=== PATIENT | female | born 1935 | race Caucasian/White ===

== ENCOUNTER 2017-03-09 10:21 | Outpatient (CLI) | payer MEDICARE ==
--- NOTE | 2017-03-09 11:31 | RAD ---
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 Followup for post surgery. COMPARISON: None. FINDINGS: In the neutral position there is anterolisthesis of L4 over L5 approximately 5 mm. Moderate degenera tive disk space narrowing at L3-4, L4-5, and L5-S1. Multiple anterior osteophytes throughout the lum bar spine. Laminectomy changes at L3, L4, and L5. With flexion, there is no further translation of the L4-5 anterolisthesis. On extension, there is no significant decrease in the listhesis. IMPRESSION: 1. No significant translation of the L4-5 grade I 5 mm anterolisthesis. 2. Multilevel degenerative disease. 3. Laminectomy changes. POS: [facility]
== END 2017-03-09 10:22 | disposition home or self-care (01) ==
LOC: TBSIIMAG 10:21
PROVIDERS: ATTEND Neurological Surgery
DX: M48.061 Spinal stenosis, lumbar region without neurogenic claudication (principal); M47.896 Other spondylosis, lumbar region; Z98.890 Other specified postprocedural states
CPT/HCPCS: 72100

== ENCOUNTER 2017-03-10 13:18 | Outpatient (CLI) | payer MEDICARE ==
[~2017-03-10 13:18] MED LIST: Gadobenate Dimeglumine 529 MG/1 ML (20ML VIAL) ONE
--- NOTE | 2017-03-10 15:25 | MRI ---
MRI OF LUMBAR SPINE WITH AND WITHOUT CONTRAST: DATE: 03/10/17. COMPARISON: None. HISTORY: Back surgery October 15, 2016. Persistent back pain. TECHNIQUE: Multiplanar, multisequence MR imaging of the lumbar spine is obtained with and without contrast. FINDINGS: The sagittal STIR imaging demonstrates no focal area of osseous marrow edema. Assuming 5 lumbar-type vertebral bodies, conus medullaris terminates at the L1-2 level. There is mild anterolisthesis of L4 on L5 measuring in the 4 mm range. T12-L1: There is disk space narrowing, disk desiccation, and anterior osteophyte formation. There i s mild bilateral facet hypertrophy. No significant central canal or neural foraminal stenosis. L1-2: Mild bilateral facet hypertrophy. Intervertebral disk height appears within normal limits wit h no significant central canal or neural foraminal stenosis seen. L2-3: Mild bilateral facet hypertrophy and hypertrophy of the ligamentum flavum. There is disk spac e narrowing, disk desiccation, and mild disk bulge. No significant central canal stenosis. There is anterior osteophyte formation. No significant neural foraminal stenosis. L3-4: There is disk space narrowing, disk desiccation, and disk bulge. There is mild bilateral face t hypertrophy. Bilateral laminectomy changes are present. There is no significant central canal rona nosis. There is mild bilateral neural foraminal stenosis. L4-5: Bilateral laminectomy changes are noted. There is mild bilateral facet hypertrophy. There is a small foraminal protrusion on the left. There is no significant central canal or neural foraminal stenosis. L5-S1: Mild bilateral facet hypertrophy noted. No significant central canal or neural foraminal rona nosis. The STIR imaging demonstrates increased signal intensity within the posterior midline paraspinal musc ulature at L3, L4, and L5, with diffuse associated postcontrast enhancement, most likely on the basis of postoperative scar. The postcontrast imaging demonstrates no abnormal enhancement involving the nerve roots of the cauda equina, the intervertebral disks, or the imaged osseous structures. The yvan ged retroperitoneal structures demonstrate no acute findings. There is a tiny T2 hyperintense lesion within the left hemipelvis, likely ovarian in nature, measuring up to 1.2 cm, suggesting a cyst. Re commend followup pelvic ultrasound given patient's age. IMPRESSION: 1. Postoperative and degenerative changes noted within the lumbar spine as detailed above. 2. Small T2 hyperintense lesion within the left hemipelvis, for which a followup pelvis ultrasound i s advised. CODE T POS: [facility]
== END 2017-03-10 13:19 | disposition home or self-care (01) ==
LOC: SCSMRI 13:18
PROVIDERS: ATTEND Neurological Surgery
DX: M48.061 Spinal stenosis, lumbar region without neurogenic claudication (principal); M43.16 Spondylolisthesis, lumbar region; M47.816 Spondylosis without myelopathy or radiculopathy, lumbar region; Z98.890 Other specified postprocedural states
CPT/HCPCS: 72158; A9579

== ENCOUNTER 2017-04-29 15:21 | Outpatient (CLI) | payer MEDICARE ==
--- NOTE | 2017-04-29 16:29 | RAD ---
LUMBAR SPINE TWO VIEWS: 04/29/17 COMPARISON: 03/09/17 HISTORY: Surgery in October, low back pain. FINDINGS: There are postsurgical clips in the mid right abdomen. Pedicles appear intact on frontal imaging with in the lumbar spine. Bilateral laminectomy changes are noted at L3-4, L4-5 and L5-S1. There is facet hypertrophy at L3-4 and L4-5. There is retrolisthesis of L3 on L4 measuring 6 mm, as seen on extension imaging performed 03/09/17. There is anterolisthesis of L4 on L5 measuring in the 7 mm range, also stable when compared to 8. There is anterolisthesis of L5 on S1 measuring approximately 5 mm, stable as well when compared to prior imaging. There is disc space narrowing and anterior osteophyte formation at T12-L1, L1-2 and L2-3. No acute os seous abnormality noted. IMPRESSION: Multilevel postoperative and degenerative changes as detailed above. POS: [facility]
== END 2017-04-29 15:22 | disposition home or self-care (01) ==
LOC: TBSIIMAG 15:21
PROVIDERS: ATTEND Neurological Surgery
DX: M43.16 Spondylolisthesis, lumbar region (principal); M47.896 Other spondylosis, lumbar region; Z98.890 Other specified postprocedural states
CPT/HCPCS: 72100

== ENCOUNTER 2017-05-30 15:25 | Emergency (ER) | payer MEDICARE ==
[~2017-05-30 15:25] MED LIST changes: -Gadobenate Dimeglumine 529 MG/1 ML (20ML VIAL) ONE; +ISOVUE-370 76%-LOCM 1 ML ONE
[2017-05-30 15:57] LABS: #Basophils 0.1 thou/uL (0.0-0.2); #Lymphocytes 1.6 thou/uL (1.20-3.40); #Monocytes 0.7 thou/uL (0.11-0.59); #Neutrophils 4.5 thou/uL (1.40-6.50); %Basophils 0.7 % (0.0-1.0); %Eosinophils 0.6 % (0.0-10.0); %Lymphocytes 23.2 % (21.0-51.0); %Monocytes 10.4 % (0.0-10.0); %Neutrophils 65.1 % (42.0-75.0); Hemoglobin 16.1 g/dL (12.0-16.0); Mean Corpuscular HGB CONC 34.3 g/dL (32.0-36.0); Mean Corpuscular Hemoglobin 30.6 pg (27.0-31.0); Mean Corpuscular Volume 89.1 fl (81.0-99.0); Mean Platelet Volume 6.8 fL (7.4-10.4); Platelet Count 221 thou/uL (130-400); RBC Distribution Width 12.1 % (11.5-14.5); Red Blood Cell (RBC) Count 5.27 mill/uL (4.20-5.40)
[2017-05-30 16:21] LABS: ALT (SGPT) 20 U/L (8-55); AST (SGOT) 19 U/L (5-34); Albumin 4.1 g/dL (3.4-4.8); Alkaline Phosphatase 202 U/L (40-150); Anion Gap 17 mmol/L (10-20); BUN (Urea Nitrogen) 17 mg/dL (9.8-20.1); Bilirubin, Total 0.8 mg/dL (0.2-1.2); Calc. Creatinine Clearance 0 mL/min (70-130); Calcium 9.7 mg/dL (7.8-10.44); Carbon Dioxide 26 mmol/L (23-31); Chloride 103 mmol/L (98-107); Estimated GFR-MDRD 70; Globulin 3.7 g/dL (2.4-3.5); Glucose 138 mg/dL (83-110); Lipase 11 U/L (8-78); Potassium 3.5 mmol/L (3.5-5.1); Protein, Total 7.8 g/dL (6.0-8.3); Sodium 142 mmol/L (136-145)
--- NOTE | 2017-05-30 17:27 | CT ---
CT ABDOMEN AND PELVIS: 05/30/2017 HISTORY: Right upper quadrant abdominal pain with intermittent diarrhea. Nausea and vomiting. COMPARISON: None available.. FINDINGS: There is dependent bibasilar atelectasis. There is a 3.1 cm, low density cystic lesion within the posterior segment of the right hepatic lobe, which does demonstrate fluid attenuation and likely represents a hepatic cyst. Post cholecystectomy changes are noted. The spleen, pancreas, bilateral adrenal glands, kidneys, and incompletely distended urinary bladder d emonstrate a normal CT appearance. There is a right total hip prosthesis, which does result in artifact through the pelvis, limiting gill luation, but the uterus has a grossly normal appearance where seen. The adnexal structures are also within normal limits for the patient's age. Minimal vascular calcifications are seen in the abdominal aorta with mild atherosclerotic plaque. There are ventral, fat-containing, infraumbilical abdominal wall hernias noted. Degenerative changes, as well as post surgical changes of the lumbar spine, are noted. There is a co mpression fracture involving the superior endplate of the L3 vertebral body. This fracture was not p resent on plain film evaluation of the lumbar spine on 04/29/2017, suggesting a more recent fracture. There does appear to be retrolisthesis of L3 on L4 on the [employer] image. Anterolisthesis of L4 on L5 and L5 on S1 was also noted on the prior exam, which is not well delineated on today's [employer] image. IMPRESSION: 1. Compression fracture L3 vertebral body. While the exact age is unable to be determined based on this exam, this does represent an interval change compared to a study on 04/29/2017. 2. Multilevel degenerative changes, as well as postsurgical changes of the lumbar spine. 3. Fat-containing infraumbilical ventral abdominal wall hernias. 4. Cholecystectomy. 5. Right hepatic lobe cyst. POS: [facility]
[2017-05-30] MEDS ORDERED: Ketorolac Tromethamine 30 MG/ML VIAL ONE ×2 (19:37→19:38)
== END 2017-05-30 19:59 | disposition home or self-care (01) ==
LOC: ERS 15:25
DX: R19.7 Diarrhea, unspecified (principal); R11.0 Nausea; S32.039D Unspecified fracture of third lumbar vertebra, subsequent encounter for fracture with routine healing; X58.XXXD Exposure to other specified factors, subsequent encounter; E11.9 Type 2 diabetes mellitus without complications; E03.9 Hypothyroidism, unspecified; I10 Essential (primary) hypertension; Z79.84 Long term (current) use of oral hypoglycemic drugs; Z79.899 Other long term (current) drug therapy
CPT/HCPCS: 74177; 80053; 83605; 83690; 85025; 96360; 96361; 96372; J1885

== ENCOUNTER 2017-06-07 14:05 | Outpatient (CLI) | payer MEDICARE ==
--- NOTE | 2017-06-07 14:47 | RAD ---
2 VIEWS LUMBAR SPINE: Date: 06/07/17 INDICATION: Follow-up fracture. COMPARISON: Prior exam dated 04/29/[address] of the abdomen and pelvis dated 05/30/17. FINDINGS: The moderate wedge compression abnormality of L3 is stable. The mild retrolisthesis of L3 on L4 and m ild anterolisthesis of L4 on L5 is stable. Mild Grade I anterolisthesis of L5 on S1 is stable. SI [place]ia [place] nts appear within normal limits. Postsurgical change consistent with laminectomies at L4 and L5 are s table. There is partial visualization of right total hip prosthesis. IMPRESSION: 1. Stable moderate wedge compression abnormality of L3. 2. 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 POS: [facility]
== END 2017-06-07 14:06 | disposition home or self-care (01) ==
LOC: TBSIIMAG 14:05
PROVIDERS: ATTEND Neurological Surgery
DX: M48.56XA Collapsed vertebra, not elsewhere classified, lumbar region, initial encounter for fracture (principal); M47.896 Other spondylosis, lumbar region
CPT/HCPCS: 72100

== ENCOUNTER 2017-06-08 19:06 | Emergency (ER) | payer MEDICARE ==
--- NOTE | 2017-06-08 20:53 | RAD ---
FRONTAL RADIOGRAPH CHEST TWO VIEWS OF ABDOMEN: 06/08/17 COMPARISON: None. HISTORY: Constipation and abdominal pain. FINDINGS: Frontal radiograph chest demonstrates no pneumothorax, pleural fluid, focal consolidation, or alveola r edema. Heart and mediastinal contours are unremarkable. The upright imaging demonstrates no evidence for free intraperitoneal air. Clips in the right upper q uadrant suggests prior cholecystectomy. Significant stool overlies the region of the rectum within th e pelvis. The bowel gas pattern appears nonobstructed. There is a total hip arthroplasty on the right . IMPRESSION: No evidence for free intraperitoneal air, small bowel obstruction or acute cardiopulmonary disease. POS: [facility]
[2017-06-08 21:30] LABS: #Lymphocytes 0.9 thou/uL (1.20-3.40); #Monocytes 0.8 thou/uL (0.11-0.59); %Basophils 0.5 % (0.0-1.0); %Eosinophils 0.2 % (0.0-10.0); %Lymphocytes 8.8 % (21.0-51.0); %Monocytes 8.7 % (0.0-10.0); %Neutrophils 81.9 % (42.0-75.0); Hemoglobin 13.9 g/dL (12.0-16.0); Mean Corpuscular HGB CONC 33.6 g/dL (32.0-36.0); Mean Corpuscular Hemoglobin 29.9 pg (27.0-31.0); Mean Platelet Volume 6.9 fL (7.4-10.4); Platelet Count 213 thou/uL (130-400); RBC Distribution Width 12.2 % (11.5-14.5); Red Blood Cell (RBC) Count 4.65 mill/uL (4.20-5.40); White Blood Cell (WBC) Count 9.7 thou/uL (4.8-10.8)
[2017-06-08 21:51] LABS: Bilirubin Negative (Negative); Blood, Urine Negative (Negative); Clarity CLOUDY (Clear); Glucose, Urine (Dipstick) Negative (Negative); Leukocyte Small (Negative); Nitrite Negative (Negative); Protein, Urine (Dipstick) Negative (Neg-Trace); Specific Gravity, Urine 1.025 (1.002-1.036); pH, Urine 5.5 (5.0-9.0)
[2017-06-08 21:52] LABS: ALT (SGPT) 16 U/L (8-55); AST (SGOT) 16 U/L (5-34); Albumin 3.6 g/dL (3.4-4.8); Alkaline Phosphatase 161 U/L (40-150); Anion Gap 14 mmol/L (10-20); BUN (Urea Nitrogen) 14 mg/dL (9.8-20.1); Bilirubin, Total 0.6 mg/dL (0.2-1.2); Calc. Creatinine Clearance 0 mL/min (70-130); Calcium 8.8 mg/dL (7.8-10.44); Carbon Dioxide 25 mmol/L (23-31); Chloride 106 mmol/L (98-107); Estimated GFR-MDRD 73; Glucose 157 mg/dL (83-110); Magnesium 2.1 mg/dL (1.6-2.6); Potassium 3.6 mmol/L (3.5-5.1); Protein, Total 6.6 g/dL (6.0-8.3); Sodium 141 mmol/L (136-145)
[2017-06-08 21:54] LABS: Bacteria/HPF 1+ HPF (None Seen); Pathc Cast-AUWi Flag 5.66 (0-2.49); RBC/HPF 0-3 HPF (0-3)
[2017-06-08 21:56] LABS: Troponin I Less than 0.010 ng/mL (< 0.028)
[2017-06-08 22:03] LABS: Hyaline Casts/LPF 0-3 HYALINE CAST LPF (0-3 Hyaline); Squamous Epithelial 21-50 HPF (0-3); Yeast-All Forms None Seen HPF (None Seen)
== END 2017-06-08 23:10 | disposition home or self-care (01) ==
LOC: ERS 19:06
DX: K59.00 Constipation, unspecified (principal); N30.00 Acute cystitis without hematuria; E03.9 Hypothyroidism, unspecified; I10 Essential (primary) hypertension; Z79.899 Other long term (current) drug therapy; Z79.84 Long term (current) use of oral hypoglycemic drugs; E11.9 Type 2 diabetes mellitus without complications
CPT/HCPCS: 36415; 74022; 80053; 81003; 81015; 82553; 83735; 84443; 84484; 85025; 87086; 93005

== ENCOUNTER 2017-07-08 15:17 | Outpatient (CLI) | payer MEDICARE ==
--- NOTE | 2017-07-08 15:52 | RAD ---
LUMBAR SPINE SERIES TWO VIEWS: 07/08/17 HISTORY: Followup of surgery. COMPARISON: 05/11/17 study. The bones are diffusely demineralized. Compression changes of the superior end plate of L3 appear fa irly stable as compared to the prior examination and the retrolisthesis at this level is also stable. Postop laminectomy changes have been performed from L3 to L5. There is a grade I spondylolisthesis o f L4 on L5 with disc narrowing. Pedicles appear intact. IMPRESSION: Stable overall exam. POS: [facility]
== END 2017-07-08 15:18 | disposition home or self-care (01) ==
LOC: TBSIIMAG 15:17
PROVIDERS: ATTEND Neurological Surgery
DX: M48.56XD Collapsed vertebra, not elsewhere classified, lumbar region, subsequent encounter for fracture with routine healing (principal); Z98.890 Other specified postprocedural states
CPT/HCPCS: 72100

== ENCOUNTER 2017-07-22 15:12 | Outpatient (CLI) | payer MEDICARE ==
[~2017-07-22 15:12] MED LIST changes: +Gadobenate Dimeglumine 529 MG/1 ML (20ML VIAL) ONE; -ISOVUE-370 76%-LOCM 1 ML ONE
--- NOTE | 2017-07-22 17:19 | MRI ---
MRI OF THE LUMBAR SPINE WITHOUT AND WITH CONTRAST 07/22/17 COMPARISON: 03/10/17, lumbar radiograph 06/07/17. HISTORY: Back pain. History of back surgery and thoracolumbar fracture. TECHNIQUE: Multiplanar and multisequence MRI images were obtained of the lumbar spine without and with IV contra st. FINDINGS: There is compression deformity of the L3 vertebral body with approximately 50% anterior height loss. There is retro displacement of the L3 vertebral body in relation to the vertebral bodies above and be low this level. This retro displacement is minimal of only approximately 2 to 3 mm. Generalized disc desiccation is seen. The other vertebral bodies demonstrate normal height. The conus medullaris terminates normally at L1. 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 The other prev ertebral and paraspinal soft tissues are unremarkable. Laminectomies of the lower lumbosacral spine. No abnormal enhancement is seen within the central canal. T12-L1: No significant posterior bulge or protrusion. No posterior facet arthrosis. No neural foramin al or central canal stenosis. L1-2: No significant posterior bulge or protrusion. Mild bilateral posterior facet arthrosis. No neur al foraminal or central canal stenosis. L2-3: A moderate disc osteophyte complex is seen. Mild bilateral posterior facet arthrosis. Moderate central canal stenosis. Mild bilateral neural foraminal stenosis. L3-4: A small disc osteophyte complex is seen. Mild bilateral posterior facet arthrosis. No central c anal stenosis. Mild to moderate bilateral neural foraminal stenosis. L4-5: A small disc osteophyte complex is seen. Mild bilateral posterior facet arthrosis. No central c anal stenosis. Mild to moderate bilateral neural foraminal stenosis. L5-S1: No significant bulge or protrusion. Moderate bilateral posterior facet arthrosis. No central c anal stenosis. Mild bilateral neural foraminal stenosis. IMPRESSION: 1. Postsurgical changes of the lumbar spine as above with residual degenerative changes as above . 2. There is interval compression deformity of the L3 vertebral body. This was seen on the prior plain film but not on the prior MRI and could be posttraumatic or post infectious in etiology. POS: [facility]
== END 2017-07-22 15:13 | disposition home or self-care (01) ==
LOC: MRI 15:12
PROVIDERS: ATTEND Neurological Surgery
DX: Z01.818 Encounter for other preprocedural examination (principal); S22.008A Other fracture of unspecified thoracic vertebra, initial encounter for closed fracture; S32.009A Unspecified fracture of unspecified lumbar vertebra, initial encounter for closed fracture; M47.896 Other spondylosis, lumbar region; M43.9 Deforming dorsopathy, unspecified; Z98.1 Arthrodesis status
CPT/HCPCS: 72158; 82565; A9579